=== PATIENT | male | born 1980 | race Caucasian/White ===

== ENCOUNTER 2017-04-04 18:01 | Emergency (ER) | payer SELFPAY ==
[~2017-04-04] VITALS: Ht 167.6 cm; Wt 83.1 kg
[~2017-04-04 18:01] MED LIST: DIPH1TAB36 PO; PROT40TA PO
[2017-04-04 18:12] VITALS: BP 137/84; PULSE 75; RESP 16; TEMP 99; O2SAT 98
[2017-04-04] MEDS ORDERED: AZIT500T2 PO (19:04)
[2017-04-04] MEDS ORDERED: BENZ100 PO (19:04)
[2017-04-04] MEDS ORDERED: MOME17I EACH NARE (19:04)
--- NOTE | 2017-04-04 19:05 | PD ---
HPI Chief Complaint: Cold / Flu Symptoms Time Seen by Provider: 18:49 Travel History International Travel<30 days: No Contact w/Intl Traveler<30days: No Traveled to known affect area: No History of Present Illness HPI 37-year-old male presents to the emergency Department with complaint of nasal congestion, chest congestion, cough times one week. Reports fever at the beginning of this illness, but not recently. Denies chest pain, shortness of breath, chest tightness. Reports wheezing. Denies history of asthma, but reports history of bronchitis/tear. Denies ear pain, sore throat. Denies vomiting. Has taken "a lot" of [id number] medications for symptom management. Symptoms are mild to moderate in severity. Has no other medical complaints. No significant past medical history. No known allergies. No primary care provider. No other modifying factors or associated signs and symptoms. PFSH Past Medical History Diminished Hearing: No Insomnia: Yes Social History Alcohol Use: Yes (sober since 10-19-15) Tobacco Use: Yes (1 PPD) Substance Use: Yes (ALCOHOL) Allergies-Medications (Allergen,Severity, Reaction): Coded Allergies: No Known Allergies (Verified Adverse Reaction, Unknown, 04/04/17) Reported Meds & Prescriptions Reported Meds & Active Scripts Active Deltasone (Prednisone) 20 Mg Tab 40 Mg PO DAILY 4 Days start 04/05/2017 Ventolin Hfa 18 GM Inh (Albuterol Sulfate) 90 Mcg/Act Aer 2 Puff INH Q4-6H PRN Nasonex Nasal [place] (Mometasone Furoate) 50 Mcg/Act Naspr 2 [place] EACH NARE DAILY PRN Tessalon Perles (Benzonatate) 100 Mg Cap 100 Mg PO TID PRN Azithromycin 500 Mg Tab 500 Mg PO DAILY Review of Systems Except as stated in HPI: all other systems reviewed are Neg Physical Exam Narrative GENERAL: Well-nourished, well-developed male patient, in no acute distress; afebrile, nontoxic-appearing SKIN: Warm and dry. HEAD: Atraumatic. Normocephalic. EYES: Pupils equal and round. No scleral icterus. No injection or drainage. ENT: Mucosa pink and moist. No erythema or exudates. No uvular edema. No uvular , palatal, or tonsillar deviation. Airway patent. Nares without nasal blood, purulent drainage or septal hematoma. EARS: Bilateral pinnae and external canals appear within normal limits. Bilateral tympanic membranes without erythema, dullness or perforation. NECK: Trachea midline. No lymphadenopathy. CARDIOVASCULAR: Regular rate and rhythm. No murmur appreciated. RESPIRATORY: No accessory muscle use. Lungs with mild Wheezing throughout to auscultation. Breath sounds equal bilaterally. No retractions or tachypnea. No Audible wheezing noted. GASTROINTESTINAL: Rounded. MUSCULOSKELETAL: No obvious deformities. No clubbing. No cyanosis. No edema. NEUROLOGICAL: Awake and alert. Oriented 3. No obvious cranial nerve deficits. Motor grossly within normal limits. Normal speech. Moves all extremities. 5/5 strength to all extremities. PSYCHIATRIC: Appropriate mood and affect; insight and judgment normal. Data Data Last Documented VS Vital Signs Date Time Temp Pulse Resp B/P (MAP) Pulse Ox O2 Delivery O2 Flow Rate FiO2 04/04/17 18:12 99.0 75 16 137/84 (101) 98 Orders Orders Prednisone (Deltasone) (04/04/17 19:15) Albuterol Neb (Albuterol Neb) (04/04/17 19:15) MDM Medical Decision Making Medical Screen Exam Complete: Yes Emergency Medical Condition: Yes Medical Record Reviewed: Yes Differential Diagnosis Bronchitis, URI, pneumonia, influenza, viral illness Narrative Course 37-year-old male physical exam consistent with acute bronchitis and upper respiratory infection. Lungs with mild wheezing throughout. No acute distress. No retractions or tachypnea. Length of illnesses been one week. She with antibiotics secondary to length of illness. Albuterol nebulizer, Deltasone ordered. 1946: On reexamination lung sounds are clear and equal throughout. Patient reports improvement in symptoms. Denies chest tightness or shortness of breath. Ventolin inhaler, Deltasone, azithromycin, Tessalon Perles, Nasonex nasal spray prescribed for home. Instructed patient to follow up with primary care provider. Patient verbalizes understanding and agreement with treatment plan. Patient is medically cleared and stable for discharge. Discussed reasons to return to the emergency department. Patient agrees with treatment plan. The patients vital signs are stable and the patient is stable for outpatient follow-up and treatment. Patient discharged home, stable and in no acute distress. Diagnosis Primary Impression: Acute bronchitis Qualified Codes: J20.9 - Acute bronchitis, unspecified Additional Impression: Upper respiratory infection Qualified Codes: J06.9 - Acute upper respiratory infection, unspecified Referrals: Primary Care Physician Patient Instructions: General Instructions, Upper Respiratory Infection (ED) Departure Forms: Tests/Procedures, Work Release Enter return to work date: Apr 06, 2017 Additional Instructions: Antibiotics as prescribed and complete full course Ibuprofen or Tylenol as instructed and as needed for fever/pain [id number] cough and cold medications as directed and as needed for symptom management Get plenty of sleep/rest Drink plenty of fluids to prevent dehydration; popsicles and Gatorade Use an air humidifier/turn off ceiling fans Follow-up with primary care provider Return immediately to the emergency department with worsening of symptoms Med/Other Pt SpecificInfo: Prescription(s) given Scripts Prednisone (Deltasone) 20 Mg Tab 40 MG PO DAILY for 4 Days, #8 TAB 0 Refills start 04/05/2017 Prov: Delores GalloP 04/04/17 Albuterol 18 GM Inh (Ventolin Hfa 18 GM Inh) 90 Mcg/Act Aer 2 PUFF INH Q4-6H Y for SOB/WHEEZING, #1 INHALER 0 Refills Prov: Delores GalloP 04/04/17 Mometasone Nasal [place] (Nasonex Nasal [place]) 50 Mcg/Act Naspr 2 SPRAY EACH NARE DAILY Y for NASAL CONGESTION, #1 BOTTLE 0 Refills Prov: Delores GalloP 04/04/17 Benzonatate (Tessalon Perles) 100 Mg Cap 100 MG PO TID Y for COUGH, #10 CAP 0 Refills Prov: Delores Gallo 04/04/17 Azithromycin (Azithromycin) 500 Mg Tab 500 MG PO DAILY for Infection, #5 TAB 0 Refills Prov: Delores Gallo 04/04/17 Disposition: 01 DISCHARGE HOME Condition: Stable Delores Gallo Apr 04, 2017 19:05
[2017-04-04] MEDS ORDERED: PRED-503 PO (19:09)
[2017-04-04] MEDS ORDERED: VENTAER INH (19:09)
[2017-04-04] MEDS ORDERED: RESP: ALBUTEROL 2.5 MG/3 ML NEB (SCH) INH ONE (19:15)
[2017-04-04] MEDS ORDERED: predniSONE 20 MG TAB PO ONE (19:15)
== END 2017-04-04 19:51 | disposition home or self-care (01) ==
LOC: PHEFT 18:01
DX: J20.9 Acute bronchitis, unspecified (principal); J06.9 Acute upper respiratory infection, unspecified; F17.200 Nicotine dependence, unspecified, uncomplicated
CPT/HCPCS: 94664; 99283; J7512; J7613